=== PATIENT | female | born 1935 | race Caucasian/White ===

== ENCOUNTER 2016-11-22 10:59 | Observation (INO) | payer MEDICARE, MEDICAID ==
--- NOTE | 2016-11-16 22:29 | HP ---
CC: Dr. Jolie Varner; Dr. Digna Ac ADMISSION HISTORY AND PHYSICAL: DATE OF ADMISSION: 11/22/16 ATTENDING PHYSICIAN: Dr. Best Peters. CHIEF COMPLAINT: Left breast cancer. HISTORY OF PRESENT ILLNESS: This is an 81-year-old female with history of breast cancer (status pos t right mastectomy), who beginning about 3 to 4 months ago noted pain in the inferior portion of the left breast that was eventually accompanied by skin lesion. She was seen by her PCP, Dr. Ac, i n September and referred for mammogram and ultrasound imaging neither of which showed any significant signs concerning for malignancy. She was seen by Dr. Peters in our office on 10/23/16, at which priscilla e, a punch biopsy was performed showing invasive lobular breast cancer, which was felt to be differe nt histologically from her prior right breast cancer. She was also seen by Dr. Varner. The patien t preferred to proceed surgically with mastectomy. It was not felt that she was a candidate for adj uvant chemotherapy and therefore, there was no recommendation for a lymph node biopsy. She did under go PET CT scanning with some concern for a left supraclavicular mass on exam, which per her daughter has been present for at least the last year or two. This apparently did not show as being PET avid (see separate report). After discussion with Dr. Varner and Dr. Peters regarding the indications, risks, benefits, and alternatives, the patient elected to proceed as scheduled with left mastectomy . PAST MEDICAL HISTORY: Breast cancer, status post right mastectomy with sentinel lymph node biopsy ( 0 of 2 lymph nodes positive for malignancy). She was treated with postoperative tamoxifen therapy a nd has demonstrated no evidence of recurrence of the right breast cancer. She is also treated medic ally for depression, hypothyroidism, peptic ulcer disease, essential tremor, hallucinations, mild de mentia. She also has mild renal insufficiency by recent lab work and this has been mildly progressi ve over the last couple of years. PAST SURGICAL HISTORY: Includes right mastectomy with sentinel lymph node biopsy, repair right shou lder rotator cuff, ORIF of left hip fracture, appendectomy remotely, right oophorectomy apparently f or benign disease in her 20s, subsequent uterine suspension, bilateral cataract extraction and lens implant. No surgical or anesthesia complications reported. CURRENT MEDICATIONS: 1. Levothyroxine 88 mcg once daily. 2. Propranolol 10 mg 2 tablets b.i.d. 3. Aricept 10 mg q. day. 4. Sertraline 50 mg q. day. 5. Gabapentin 300 mg three tablets at h.s. 6. Omeprazole 40 mg q. day. 7. Centrum Silver multivitamin once daily. 8. Calcium with vitamin D 2 tablets b.i.d. DRUG ALLERGIES: PENICILLIN (rash) (the patient has received cefazolin in the past without any probl em). PRIMIDONE, BACLOFEN, and ROPINIROLE have all caused [employer] side effects. FAMILY HISTORY: Positive for postmenopausal breast cancer in her sister and possibly ovarian cancer in her paternal grandmother and probable uterine cancer in her mother, though undetermined. There is no family history of anesthesia problems, bleeding, or clotting disorder. SOCIAL HISTORY: The patient is and lives alone. Her daughter accompanies her today. She i s a former smoker of approximately 1 pack per day for 45 years having quit now about 5 years ago. S he denies use of alcohol or other drugs. REVIEW OF SYSTEMS: General: No recent constitutional symptoms or acute illnesses other than per th e HPI. Her weight has been stable and per her daughter actually up about 3 pounds in recent months. Cardiovascular: No chest pain, palpitations, history of hypertension, or heart murmur. She takes propranolol for tremor. Respiratory: Smoking history as noted. She denies chronic cough or shortn ess of breath. Her ambulation is limited by orthopedic and/or neurological problems. GI: No proble ms reported. No recent GERD symptoms. She does not recall her last colonoscopy but has had them in the past. : No problems reported. [employer]AC[employer] MEMBER: As above per HPI. No vaginal problems reported. [facility] [place] As above. No additions. The patient did sustain a fall back in the spring 2015 with resulting right wrist fracture, which was treated with closed reduction. Neurological: As above. She is followed by Dr. Sam. The patient has had some balance problems and falls though is not presently using any ambulation aids. PHYSICAL EXAMINATION GENERAL: Well-nourished, somewhat frail-appearing elderly female, in no acute distress. VITAL SIGNS: Height 5 feet 1 inch, weight 126 pounds by history. Other vital signs per nursing. HEENT: Pupils equal, round, and reactive. EOMs intact. No conjunctival pallor. Oropharynx, she thorne s full upper denture, but is otherwise edentulous. No intraoral lesions. NECK: No lymphadenopathy or thyromegaly. She does have what feels like a soft tissue mass consiste nt with lipoma in the left supraclavicular region near the base of the SCM muscle. It is nontender and the daughter states that it has been present for the last year or two and seems to wax or wane. As noted above, this did not seem to be PET avid on PET CT from yesterday. This based on only on m y review of the report and not the actual scan. Per Dr. Varner's notes, no palpable axillary lymp hadenopathy. LUNGS: Clear to auscultation. No rales or wheezes. HEART: Regular rate and rhythm. No murmur noted. BREASTS: As per Dr. Peters's exam status post right mastectomy. There is some fullness and chronic induration in the anterior inferior right chest wall. There seems to be chronic changes post right mastectomy. There is no evidence of recurrent breast cancer on the right. On the left, there is a n area measuring approximately 2 x 5 cm in the medial aspect of the left breast inferior mammary fol d from which the recent biopsy was taken. Per Dr. Peters's exam, there were no other palpable april s of concern within the left breast. ABDOMEN: Soft, nontender to palpation other than some mild tenderness in the left lower quadrant. The remainder of the abdomen is without tenderness, palpable masses, or organomegaly. GENITALIA AND RECTAL: Not done. BACK: No spinous process tenderness, though there is some tenderness over the left SI joint. No CV A tenderness. EXTREMITIES: Well-healed surgical scar over the left lateral hip. No peripheral edema. VASCULAR EXAM: Not performed. MUSCULOSKELETAL: Not specifically performed. NEUROLOGICAL: Grossly intact. SKIN: Warm and dry. No suspicious rashes or lesions other than that noted in the HPI and confirmed by Dr. Peters's exam in the inframammary fold of the left breast. IMPRESSION: Left breast cancer. PLAN: Left mastectomy. RIGO MARTINES [id number]/[facility] #: [id number]
[~2016-11-22 10:59] MED LIST: Buffered Lidocaine 1% SYR 3ML* 3 ML/SYR SYRINGE INTRADERM ONE; Dexamethasone TAB* 4 MG PO ONE; Famotidine IV* 10 MG/ML 2 ML (20 mg) IV ONE
[2016-11-22] MEDS ORDERED: HYDROcodone/ACETAMIN 5-325 MG* 1 TAB PO PRN (12:18)
[2016-11-22] MEDS ORDERED: fentaNYL* 50 MCG/ML 2 ML VIAL (100 MCG VIAL) ONE ×2 (12:41→14:16)
[2016-11-22] MEDS ORDERED: Propofol* 10 MG/ML 20 ML BTL IV PUSH ONE (12:41)
[2016-11-22] MEDS ORDERED: Lidocaine 2% PF * 5 ML VIAL ONE (12:41)
[2016-11-22] MEDS ORDERED: EPHEDrine (Pressors)* 50 MG/ML VIAL ONE (12:57)
[2016-11-22] MEDS ORDERED: Ondansetron INJ* 2 MG/ML VIAL ONE (13:22)
[2016-11-22] MEDS ORDERED: oxyCODONE/Acetamin 5/325 MG* TAB ONE ×2 (14:16→16:07)
[2016-11-22] MEDS: fentaNYL* 50 MCG/ML 2 ML VIAL (100 MCG VIAL) IV PRN ×2 (14:19→14:25)
[2016-11-22] MEDS: oxyCODONE/Acetamin 5/325 MG* TAB PO PRN ×2 (14:20→16:08)
[2016-11-22] MEDS ORDERED: oxyCODONE/Acetamin 5/325 MG* TAB PO PRN (16:53)
[2016-11-22] MEDS ORDERED: Acetaminophen TAB* 325 MG PO PRN (16:53)
[2016-11-22] MEDS ORDERED: Ondansetron INJ* 2 MG/ML VIAL IV PRN (16:53)
[2016-11-22] MEDS ORDERED: Morphine INJ* 2 MG/ML 1 ML CARPUJECT IV PRN ×2 (17:51→17:52)
[2016-11-22] MEDS: Propranolol TAB* 20 MG PO SCH (21:24)
[2016-11-22] MEDS: Gabapentin CAP(*) 300 MG PO SCH (21:24)
[2016-11-22] MEDS: Heparin VIAL(*) 5000 UNITS/ML VIAL (FIVE THOUSAND) SUBCUT SCH (21:24)
[2016-11-22] MEDS: SALON PAS TOPICAL SCH (21:31)
--- NOTE | 2016-11-23 02:25 | OP ---
DATE OF OPERATION: 11/22/16 - ROOM #335 DATE OF : 33 SURGEON: Best Peters MD INSPECTOR RAG SORTING: Dorcas Ohara NP ANESTHESIOLOGIST: Dr. Gonzalez. ANESTHESIA: General anesthetic. PRE-OP DIAGNOSIS: Left breast cancer. POST-OP DIAGNOSIS: Left breast cancer. OPERATIVE PROCEDURE: Left mastectomy. DESCRIPTION OF PROCEDURE: The patient was supine on the operative room table. After adequate general anesthetic, compression stockings, Jonathan Hugger warmer, and intravenous antibiotics, the left chest was prepped with antiseptic, draped in a sterile fashion. The incision was marked out trying to encompass the entire area of the tumor erosion into the skin as well as the nipple-areolar complex. The area of the skin erosion as well as the palpable under-lying tumor encompassed approximately 6 x 4 cm in the medial aspect of the breast at the inframammary fold. At any case, an appropriate elliptical incision was created and mastectomy was carried out in a standard fashion. At the region of the tumor, I had to take out some of the pectoralis muscle with the mastectomy specimen because of the depth of the tumor. Flaps were undermined to allow a little more mobility. The area was irrigated with warm saline solution, free fluid was suctioned. Hemostasis was obtained using cautery or suture where appropriate, and closure was accomplished using 3-0 Vicryl and surgical clips for the skin. A AMY drain had been placed through a lateral stab wound, sutured at the skin with 3-0 Prolene and attached to the bulb suction. Gauze dressing and an Rober wrap were placed. She tolerated the procedure well, was brought to recovery in good condition. No complications. Estimated blood loss less than 100 mL. Sponge and instrument counts correct. Specimen was left mastectomy, suture marking lateral. CC: Dr. Best Peters; Dr. Digna Ac; Dr. Jolie Varner * [id number]/[facility] #: [id number] [facility]
[2016-11-23] MEDS: Levothyroxine TAB* 88 MCG TAB PO SCH (05:28)
[2016-11-23] MEDS: Propranolol TAB* 20 MG PO SCH ×2 (09:11→21:15)
[2016-11-23] MEDS: Donepezil TAB* 5 MG PO SCH (09:11)
[2016-11-23] MEDS: Sertraline* 50 MG TAB PO SCH (09:11)
[2016-11-23] MEDS: Omeprazole CAP* 20 MG PO SCH (09:11)
[2016-11-23] MEDS: Heparin VIAL(*) 5000 UNITS/ML VIAL (FIVE THOUSAND) SUBCUT SCH ×2 (09:12→21:16)
[2016-11-23] MEDS: SALON PAS TOPICAL SCH ×2 (09:12→20:09)
--- NOTE | 2016-11-23 16:54 | PN ---
Progress Note - Progress Note Note: Surgery Progress: S: patient seen this a.m. by Dr. Peters, then later w/ her daughters by myself around 1100. I reviewed her PT komal and discussed her case w/ Fabiola Live. A/P: POD #1 s/p Left Mastectomy, felt to be unsafe for independent ambulation at home (she has already had a few falls), now with increased disability 2/2 her surgery. Also, as she lives alone, she would likely be incapable of managing her AMY drain on her own. An application has been put in to half-way , but we will not know until at least tomorrow. Will therefore change her status to full inpatient as she will stay tonight, thus meeting the two midnight criteria.
[2016-11-23] MEDS: Gabapentin CAP(*) 300 MG PO SCH (21:15)
[2016-11-24] MEDS: Levothyroxine TAB* 88 MCG TAB PO SCH (05:29)
[2016-11-24] MEDS: SALON PAS TOPICAL SCH (07:30)
[2016-11-24 07:39] VITALS: BP 83/39
[2016-11-24] MEDS: Omeprazole CAP* 20 MG PO SCH (07:50)
[2016-11-24] MEDS: Propranolol TAB* 20 MG PO SCH (07:50)
[2016-11-24] MEDS: Sertraline* 50 MG TAB PO SCH (07:50)
[2016-11-24] MEDS: Donepezil TAB* 5 MG PO SCH (07:50)
[2016-11-24] MEDS: Heparin VIAL(*) 5000 UNITS/ML VIAL (FIVE THOUSAND) SUBCUT SCH (07:51)
--- NOTE | 2016-11-24 15:24 | DS ---
DISCHARGE SUMMARY: DATE OF ADMISSION: 11/22/16 DATE OF ANTICIPATED DISCHARGE: 11/24/16 ATTENDING SURGEON: Dr. Best Peters. (dictated by RIGO Renee) HOSPITAL COURSE: Please refer to admission history and physical for admission details. The patient was taken to the operating room on 11/22/16 at which time she underwent left simple mastectomy with Dr. Peters. At the time of this dictation, pathology was still pending. The patient has had an otherwise uneventful postoperative course. She did have some periods of low oxygen saturation on room air but was doing well as of the time of this dictation on room air. Her pain has been well controlled. She was felt to be unsteady with her gait sufficiently that a physical therapy consult was requested. This indicated the patient was at high risk for falls without proper assistance and supervision. The patient had been examined the morning of 11/23/[address] Peters. Nilesh Avina drainage with serosanguineous with a total of approximately 75 cc from the first postoperative night. IMPRESSION: Status post left mastectomy. PLAN: Because of patient's high risk for falls and that she lives at home independently, it was felt best to seek short-term [facility] facility for rehab. This is still pending with the possibility of a bed available on . This will also assist with her Nilesh-Avina drain management, which would need to be emptied at least twice daily and possibly 3 to 4 times. DISCHARGE MEDICATIONS: Will include her usual home medications: 1. Centrum Silver once daily. 2. Calcium with vitamin D two capsules b.i.d. 3. Levothyroxine 88 mcg once daily. 4. Aricept 10 mg once daily. 5. Zoloft 50 mg once daily. 6. Gabapentin 900 mg at h.s. 7. Propranolol 20 mg b.i.d. 8. Omeprazole 40 mg q.a.m. 9. Acetaminophen 1000 mg b.i.d. She was also prescribed Percocet 5/325 one half tablet q. 4 hours p.r.n. pain. RIGO MARTINES CC: Dr. Digna Ac; Dr. Jolie Varner * [id number]/[facility] #: [id number] [place]
== END 2016-11-24 11:50 | disposition home or self-care (01) ==
LOC: OR 10:59 → SSU 16:55
PROVIDERS: ADMIT Surgery; ATTEND Surgery
PROC: 0HTU0ZZ Resection of Left Breast, Open Approach (ICD-10-PCS; principal; 2016-11-22 12:45)
DX: C50.512 Malignant neoplasm of lower-outer quadrant of left female breast (principal); E03.9 Hypothyroidism, unspecified; F32.9 Major depressive disorder, single episode, unspecified; K27.9 Peptic ulcer, site unspecified, unspecified as acute or chronic, without hemorrhage or perforation; G25.0 Essential tremor; F03.90 Unspecified dementia, unspecified severity, without behavioral disturbance, psychotic disturbance, mood disturbance, and anxiety; Z79.899 Other long term (current) drug therapy; Z87.891 Personal history of nicotine dependence
CPT/HCPCS: 88307; A9270-GY; G0378; G8978-GP-CK; G8979-GP-CI; G8980-GP-CK; J1644; J2405; J2704; J3010

== ENCOUNTER → 2017-05-10 21:39 | Emergency (ER) | payer MEDICARE ==
[2017-05-11 00:06] VITALS: BP 131/62
--- NOTE | 2017-05-11 07:46 | RAD ---
HISTORY: Fall, left hip pain COMPARISONS: March 05, 2015 VIEWS: 3, Frontal view of the pelvis with frontal and frog-leg views of the left hip FINDINGS: BONE DENSITY: Normal. BONES: There is no displaced fracture. JOINTS: There is advanced osteoarthritis of the left hip. 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 ALIGNMENT: There is no dislocation. SOFT TISSUES: Unremarkable. OTHER FINDINGS: Degenerative changes are noted of the spine IMPRESSION: OSTEOARTHRITIS. NO RADIOGRAPHIC EVIDENCE FOR HIP FRACTURE. X-RAYS MAY BE NEGATIVE WITH NONDISPLACED HIP FRACTURE, IF THERE IS PERSISTENT CLINICAL CONCERN, RECOMMEND CONSIDERATION OF MRI. IN THE SETTING OF CONTRAINDICATION TO MRI OR LIMITATION IN EMERGENT ACCESS TO MRI, CT WOULD BE SUGGESTED.
--- NOTE | 2017-05-11 07:47 | RAD ---
HISTORY: Fall COMPARISONS: July 15, 2015 VIEWS: 2: Frontal and lateral views of the chest. FINDINGS: CARDIOMEDIASTINAL SILHOUETTE: The cardiomediastinal silhouette is normal. TUNDE: The tunde are normal. PLEURA: The costophrenic angles are sharp. No pleural abnormalities are noted. LUNG PARENCHYMA: There is a stable calcified granuloma of the right upper lung. ABDOMEN: The upper abdomen is clear. There is no subphrenic gas. BONES AND SOFT TISSUES: There is postsurgical change to the right shoulder. OTHER: None. IMPRESSION: NO ACTIVE CARDIOPULMONARY DISEASE.
== END | disposition home or self-care (01) ==
LOC: ED 21:39
DX: M25.552 Pain in left hip (principal)
CPT/HCPCS: 71020; 99283

== ENCOUNTER 2017-12-01 17:31 | Emergency (ER) | payer MEDICARE ==
--- NOTE | 2017-12-01 19:31 | RAD ---
INDICATION: Fall COMPARISON: None. TECHNIQUE: Contiguous axial sections of the brain were obtained from the skull base to the vertex without contrast. FINDINGS: The ventricles, cisterns and sulci exhibit mild symmetrical involutional changes appropriate for the patient's age. There is mild to moderate periventricular and subcortical white matter hypoattenuation most consistent with chronic microvascular disease. Otherwise the abraham-white matter differentiation is adequately maintained and there is no sulcal effacement. No significant focal abnormality or mass effect is present. There is no evidence for intracranial hemorrhage. At the right frontal bone there is a 6 mm hypoattenuating focus overlying the medullary cavity of the bone. This does not communicate with the inner table of the skull characteristic of a venous vargas. This does not involve the cortex and there is no periosteal reaction. The visualized portion of the paranasal sinuses appear clear. The mastoid air cells are well aerated bilaterally. IMPRESSION: 1. No CT evidence of acute traumatic intracranial abnormality. 2. At the right frontal bone there is a 6 mm medullary hypoattenuating focus with nonaggressive CT imaging features that is nonspecific and of unknown chronicity
[2017-12-01 19:40] LABS: ABS Basophils 0 10^3/ul (0-0.2); ABS Eosinophils 0 10^3/ul (0-0.6); ABS Lymphocytes 1.5 10^3/ul (1.0-4.8); ABS Monocytes 0.4 10^3/ul (0-0.8); ABS Neutrophils 5.4 10^3/ul (1.5-7.7); ABS Nucleated RBC 0 10^3/ul; Eosinophil % 0.6 % (0-6); Hematocrit 35 % (35-47); Mean Corpuscular HGB Conc 34 g/dl (31-36); Mean Corpuscular Hemoglobin 32 pg (27-31); Mean Corpuscular Volume 92 fL (80-97); Mean Platelet Volume 8 um3 (7.4-10.4); Nucleated Red Blood Cells % 0.1; Platelet Count 146 10^3/ul (150-450); Red Cell Distribution Width 15 % (10.5-15); White Blood Count 7.3 10^3/ul (3.5-10.8)
[2017-12-01 19:41] LABS: Urine Appearance Clear; Urine Blood Negative (Negative); Urine Color Yellow; Urine Ketones Trace (Negative); Urine Protein Negative (Negative); Urine Specific Gravity 1.013 (1.010-1.030); Urine Urobilinogen Negative (Negative)
[2017-12-01 19:54] LABS: EGFR Non-African American 41.7 (>60)
--- NOTE | 2017-12-01 20:14 | RAD ---
INDICATION: Low back pain after a fall COMPARISON: PET/CT dated November 15, 2016 and chest x-ray dated February 07, 2017 TECHNIQUE: Contiguous axial sections were obtained beginning lower thoracic vertebra and continuing through the sacrum. Images were reconstructed in the sagittal and coronal planes. FINDINGS: There is depression of the superior endplate of the T12 vertebral body with slight cortical discontinuity along the anterior margin of the vertebral body. There is dextroconvex scoliosis of the lumbar spine measuring 30 degrees with the apex at the L1/L2 intervertebral disc. On the sagittal view there is straightening of the normal cervical lordosis. Multilevel degenerative changes include loss of intervertebral disc height and multilevel vacuum disc phenomenon. There is exuberant marginal osteophyte formation and endplate sclerosis. These changes are most severe at L2/L3, L3/L4 and L5/S1. There are varying degrees of central canal or neural foraminal stenoses essentially involving all levels of the lumbar spine. There is advanced calcified atherosclerosis of the infrarenal abdominal aorta extending into the bilateral iliac arteries. A large renal cyst is noted at the left kidney. The visualized portions of the liver homogenously hypodense relative to the spleen consistent with hepatic steatosis. IMPRESSION: 1. There is a compression deformity of the T12 vertebral body that was not seen on the PET/CT dated November 15, 2016 and likely not seen on the May 10, 2017 chest x-ray. Please correlate to the focality of the patient's new pain since a reported fall. Superior characterization with determination of acuity can be made with MRI of the spine. 2. Advanced multilevel degenerative change of the lower thoracic and lumbar spine.
--- NOTE | 2017-12-01 20:20 | RAD ---
INDICATION: Left hip pain after a fall COMPARISON: Most recent hip radiograph is dated August 05, 2017 TECHNIQUE: 3 views of the left hip were obtained. FINDINGS: Advanced degenerative changes of the left hip include sclerotic remodeling and flattening of the left femoral head with exuberant marginal osteophyte formation and joint space narrowing. The appearance is similar to the most recent radiograph. There is no definite new cortical discontinuity to indicate an acute fracture. To a lesser extent more mild degenerative changes are noted at the right hip. There is no definite fracture of the pubic rami.. IMPRESSION: Advanced degenerative changes of the left hip without definite radiographically apparent acute fracture. If the patient's symptoms persist follow-up imaging is recommended.
--- NOTE | 2017-12-01 20:22 | RAD ---
INDICATION: Left hip pain COMPARISON: Chest x-ray dated May 10, 2017 TECHNIQUE: Single AP view of the chest was obtained. FINDINGS: There is mild cardiomegaly that appears worse when compared to the previous chest x-ray. The heart and mediastinum otherwise exhibit normal contours. The degree of diffuse interstitial parenchymal density is unchanged in the previous chest x-ray. There is slight obscuration of the left hemidiaphragm left costophrenic angle blunting. Visualized bones are normal for the patient's age. IMPRESSION: SINCE THE MAY 10, 2017 CHEST X-RAY THERE APPEARS TO BE WORSENING DEGREE OF MILD CARDIOMEGALY AND APPEARANCE CONSISTENT WITH MILD VASCULAR CONGESTION.
--- NOTE | 2017-12-01 21:41 | RAD ---
CLINICAL HISTORY: Left hip pain after a fall. Relevant surgical history includes medullary screw fixation of fractured left femoral neck 2009 with subsequent screw removal. COMPARISON: Same day radiograph of the left hip TECHNIQUE: Axial CT images of the pelvis were obtained without intravenous contrast. Reformats in the sagittal and coronal planes were created and reviewed. FINDINGS: The visualized portions of the solid abdominal organs are grossly normal in appearance. The visualized segments of small and large bowel are not distended. Innumerable distal colonic diverticula are seen without focal inflammatory change. There is no gross retroperitoneal or mesenteric lymphadenopathy in the visualized portions of the lower abdomen and pelvis. There is coarse calcification in the infrarenal abdominal aorta extending into the bilateral iliac arteries. As was seen on the same day radiograph there there are severe degenerative changes of the left hip include joint space narrowing and, sclerotic change of the articulating services, subchondral lucencies and marginal osteophyte formation. There are 3 lucent lines overlying the left femoral head and neck with a morphology compatible with prior screw locations. There is no definite acute fracture or dislocation involving the proximal left femur or the pelvis. Mild degenerative changes are also noted at the right hip but to a much lesser extent. IMPRESSION: Degenerative and postsurgical changes of the left hip as described above without acute fracture or dislocation.
[2017-12-01] MEDS ORDERED: LORazepam INJ* 2 MG/ML 1 ML VIAL IV ONE (22:06)
[2017-12-01] MEDS ORDERED: LORazepam TAB(*) 0.5 MG ONE (22:26)
[2017-12-01] MEDS ORDERED: LORazepam TAB(*) 0.5 MG PO ONE (22:37)
[2017-12-01 22:58] VITALS: BP 133/52
--- NOTE | 2017-12-02 11:15 | ED ---
Park Mckinney Thomas, scribed for Yohan Chan MD on 12/01/17 at 1951 . Complex/Multi-Sys Presentation - HPI Summary HPI Summary: The patient is an 82 year old female who was brought in to the emergency department because she fell yesterday. She is not sure how she fell, what happened, or what room she was in when she fell. She complains of mid and lower back pain. At baseline the patient gets around in a wheelchair because she is unsteady on her feet. - History Of Current Complaint Chief Complaint: EDGeneral Time Seen by Provider: 12/01/17 18:36 Hx Obtained From: Patient Onset/Duration: Lasting Days, Still Present Timing: Constant Severity Initially: Moderate Location: Pain At: - mid, lower back Alleviating Factor(s): None Associated Signs And Symptoms: Positive: Other - Fall, back pain - Allergies/Home Medications Allergies/Adverse Reactions: Allergies Allergy/AdvReac Type Severity Reaction Status Date / Time baclofen Allergy Shakes Verified 12/01/17 18:29 Penicillins Allergy Rash Verified 12/01/17 18:29 ropinirole Allergy Unknown Verified 12/01/17 18:29 Reaction Details wasp venom Allergy Difficulty Uncoded 12/01/17 18:29 Breathing/Wheezing narcotic pain meds AdvReac Intermediate Vomiting Uncoded 11/15/16 09:31 PMH/Surg Hx/FS Hx/Imm Hx Endocrine/Hematology History: Reports: Hx Thyroid Disease Denies: Hx Diabetes Cardiovascular History: Denies: Hx Hypertension, Hx Pacemaker/ICD Respiratory History: Reports: Other Respiratory Problems/Disorders - 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) Denies: Hx Asthma GI History: Reports: Hx Ulcer, Other GI Disorders - diarrhea History: Reports: Other Problems/Disorders - incontinance Denies: Hx Renal Disease Musculoskeletal History: Reports: Hx Arthritis, Hx Bursitis - in right hip - had a cortisone injection 3 years ago, Other Musculoskeletal History - lumbar stenosis, cervical stenosis Sensory History: Reports: Hx Contacts or Glasses - glasses Denies: Hx Hearing Aid Opthamlomology History: Reports: Hx Contacts or Glasses - glasses Neurological History: Reports: Hx Headaches, Hx Migraine, Hx Nerve Disease - tremors in legs and hands from back Comment Only: Other Neuro Impairments/Disorders - alzimers Psychiatric History: Reports: Hx Depression - ZOLOFT Denies: Hx Panic Disorder - Cancer History Cancer Type, Location and Year: BREAST Hx Chemotherapy: No Hx Radiation Therapy: No - Surgical History Surgery Procedure, Year, and Place: LT HIP ORIF WITH SCREW THEN SCREW REMOVAL - 2009;. 2009 right shoulder RTC REPAIR, right masectomy;. APPENDECTOMY AND RIGHT OVARY REMOVAL;. RECONSTRUCTION TO ABDOMEN AFTER APPENDECTOMY;. BILATERAL CATARACTS Hx Anesthesia Reactions: Yes - felt a little nausea after anesthesia Infectious Disease History: No Infectious Disease History: Reports: Hx Shingles Denies: Traveled Outside the [place] in Last 30 Days - Family History Known Family History: Positive: Other - Per EMR, patient denies relevant FHx - Social History Alcohol Use: None Substance Use Type: Reports: None Smoking Status (MU): Former Smoker Review of Systems Negative: Epistaxis Positive: Other - Mid, lower back pain Neurological: Other - Fall All Other Systems Reviewed And Are Negative: Yes Physical Exam - Summary Physical Exam Summary: Appearance: The patient is well-nourished in no acute distress and in no acute pain. Skin: The skin is warm and dry and skin color reflects adequate perfusion. HEENT: The head is normocephalic and atraumatic. The pupils are equal and reactive. The conjunctivae are clear and without drainage. Nares are patent and without drainage. Mouth reveals moist mucous membranes and the throat is without erythema and exudate. The external ears are intact. The ear canals are patent and without drainage. The tympanic membranes are intact. Neck: the neck is supple with full range of motion and non-tender. There are no carotid bruits. There is no neck vein distension. Respiratory: Chest is non-tender. Lungs are clear to auscultation and breath sounds are symmetrical and equal. Cardiovascular: Heart is regular rate and rhythm. There is no murmur or rub auscultated. There is no peripheral edema and pulses are symmetrical and equal. Abdomen: The abdomen is soft and non-tender. There are normal bowel sounds heard in all four quadrants and there is no organomegaly palpated. Musculoskeletal: She is tender to her left hip and paralumbar area. She is tender to any range of motion of the left hip. The left leg is shorter than the right. There is good capillary refill. There is no peripheral edema or calf tenderness elicited. Neurological: Patient is alert and oriented to person, place and time. The patient has symmetrical motor strength in all four extremities.~Cranial nerves are grossly intact. Deep tendon reflexes are symmetrical and equal in all four extremities. Psychiatric: The patient has an appropriate affect and does not exhibit any anxiety or depression. Triage Information Reviewed: Yes Vital Signs On Initial Exam: Initial Vitals Temp Pulse Resp BP Pulse Ox 99.6 F 73 14 147/40 89 12/01/17 17:35 12/01/17 17:35 12/01/17 17:35 12/01/17 17:35 12/01/17 17:35 Vital Signs Reviewed: Yes Diagnostics - Vital Signs Vital Signs Temp Pulse Resp BP Pulse Ox 12/01/17 19:00 68 14 121/89 98 12/01/17 18:30 69 12 114/52 95 12/01/17 18:00 69 16 117/67 96 12/01/17 17:50 97 12/01/17 17:47 72 17 147/40 92 12/01/17 17:41 74 89 12/01/17 17:35 99.6 F 73 14 147/40 89 - Laboratory Lab Results: Lab Results 12/01/17 12/01/17 Range/Units 17:45 19:25 WBC 7.3 (3.5-10.8) 10^3/ul RBC 3.80 L (4.0-5.4) 10^6/ul Hgb 12.0 (12.0-16.0) g/dl Hct 35 (35-47) % MCV 92 (80-97) fL MCH 32 H (27-31) pg MCHC 34 (31-36) g/dl RDW 15 (10.5-15) % Plt Count 146 L (150-450) 10^3/ul MPV 8 (7.4-10.4) um3 Neut % (Auto) 73.0 (38-83) % Lymph % (Auto) 21.0 L (25-47) % [place] % (Auto) 4.8 (0-7) % Eos % (Auto) 0.6 (0-6) % Baso % (Auto) 0.6 (0-2) % Absolute Neuts (auto) 5.4 (1.5-7.7) 10^3/ul Absolute Lymphs (auto) 1.5 (1.0-4.8) 10^3/ul Absolute Monos (auto) 0.4 (0-0.8) 10^3/ul Absolute Eos (auto) 0 (0-0.6) 10^3/ul Absolute Basos (auto) 0 (0-0.2) 10^3/ul Absolute Nucleated RBC 0 10^3/ul Nucleated RBC % 0.1 Urine Color Yellow Urine Appearance Clear Urine pH 7.0 (5-9) Ur Specific Pitcher 1.013 (1.010-1.030) Urine Protein Negative (Negative) Urine Ketones Trace A (Negative) Urine Blood Negative (Negative) Urine Nitrate Negative (Negative) Urine Bilirubin Negative (Negative) Urine Urobilinogen Negative (Negative) Ur Leukocyte Esterase Negative (Negative) Urine Glucose Negative (Negative) Result Diagrams: 12/01/17 19:25 12/01/17 19:25 Lab Statement: Any lab studies that have been ordered have been reviewed, and results considered in the medical decision making process. - Radiology CXR Xray Interpretation: No Acute Changes - SINCE THE MAY 10, 2017 CHEST X-RAY THERE APPEARS TO BE WORSENING DEGREE OF MILD CARDIOMEGALY AND APPEARANCE CONSISTENT WITH MILD VASCULAR CONGESTION. Dr. Chan has reviewed this report. Radiology Interpretation Completed By: Radiologist Hip/Pelvis XR Xray Interpretation: No Acute Changes Radiology Interpretation Completed By: Radiologist - CT CT Brain CT Interpretation: No Acute Changes - 1. No CT evidence of acute traumatic intracranial abnormality. 2. At the right frontal bone there is a 6 mm medullary hypoattenuating focus with nonaggressive CT imaging features that is nonspecific and of unknown chronicity. Dr. Chan has reviewed this report. CT Interpretation Completed By: Radiologist CT L-Spine CT Interpretation: Positive (See Comments) - 1. There is a compression deformity of the T12 vertebral body that was not seen on the PET/CT dated November 15, 2016 and likely not seen on the May 10, 2017 chest x-ray. Please correlate to the focality of the patient's new pain since a reported fall. Superior characterization with determination of acuity can be made with MRI of the spine. 2. Advanced multilevel degenerative change of the lower thoracic and lumbar spine. Dr. Chan has reviewed this report. CT Interpretation Completed By: Radiologist CT Pelvis CT Interpretation: No Acute Changes - Degenerative and postsurgical changes of the left hip as described above without acute fracture or dislocation. Dr. Chan has reviewed this report. CT Interpretation Completed By: Radiologist - EKG 18:11 Cardiac Rate: NL EKG Rhythm: Sinus Rhythm - at 68 BPM Re-Evaluation - Re-Evaluation First Eval Re-Evaluation Time: 22:03 Comment: Discussed results. Patient will be discharged. Complex Multi-Symp Course/Dx Course Of Treatment: Ms. Elizabeth presented after falling yesterday. She suggests that she may have tried to walk to the kitchen without using her wheelchair and that she is very unsteady on her feet. She C/O low back and left hip pain and had an obvious deformity of the left hip. The deformity turned out to be chronic on CT and the pain was secondary to a presumably new compression fracture at T-12. The rest of her W/U was negative. She may have been syncopal but was stable on the monitor while she was in the ED 24 hours later. - Diagnoses Provider Diagnoses: Compression fracture of body of thoracic vertebra Discharge - Discharge Plan Condition: Stable Disposition: HOME Prescriptions: LORazepam TAB(*) [Ativan TAB(*)] 0.5 mg PO Q6H PRN #20 tab MDD 4 PRN Reason: Pain Patient Education Materials: Ibuprofen (By mouth), Vertebral Compression Fracture (ED) Referrals: Digna Ac MD [Primary Care Provider] - 3 Days Additional Instructions: Follow up with Dr. Ac in 3-4 days. I recommend ibuprofen for the pain. Return to the emergency department for any new or worsening symptoms. The documentation as recorded by the Park childs Thomas accurately reflects the service I personally performed and the decisions made by me, Yohan Chan MD.
== END 2017-12-01 22:24 | disposition home or self-care (01) ==
LOC: ED 17:31
DX: S22.089A Unspecified fracture of T11-T12 vertebra, initial encounter for closed fracture (principal); W19.XXXA Unspecified fall, initial encounter; Y92.9 Unspecified place or not applicable; Z87.891 Personal history of nicotine dependence; Z88.3 Allergy status to other anti-infective agents; Z88.5 Allergy status to narcotic agent; Z88.0 Allergy status to penicillin
CPT/HCPCS: 36415; 70450; 71045; 72131; 72192; 80053; 81003; 82550; 84484; 85025; 86140; 93005; 99283; A9270-GY

== ENCOUNTER 2018-02-02 09:13 | Emergency (ER) | payer MEDICARE, MEDICAID ==
--- NOTE | 2018-02-02 10:18 | RAD ---
HISTORY: Fall. No other history is provided COMPARISONS: December 01, 2017 TECHNIQUE: Multiple contiguous axial CT scans were obtained of the head without intravenous contrast. FINDINGS: HEMORRHAGE/INFARCT: There is no hemorrhage or acute infarct. MASSES/SHIFT: There is no mass or shift. EXTRA-AXIAL SPACES: There are no extra-axial fluid collections. SULCI AND VENTRICLES: The sulci and ventricles are normal in size and position for the patient's stated age. CEREBRUM: There is hypoattenuation of the periventricular and subcortical white matter. BRAINSTEM: There are no focal parenchymal abnormalities. CEREBELLUM: There are no focal parenchymal abnormalities. VESSELS: The vessels are grossly normal. PARANASAL SINUSES: The paranasal sinuses are clear. ORBITS: The orbits are unremarkable. BONES AND SOFT TISSUE: No bone or soft tissue abnormalities are noted. OTHER: None IMPRESSION: NO ACUTE INTRACRANIAL PATHOLOGY.
--- NOTE | 2018-02-02 10:21 | RAD ---
HISTORY: Fall. No other history is provided. COMPARISONS: None relevant TECHNIQUE: Multiple contiguous axial CT scans were obtained of the cervical spine without intravenous contrast, with coronal and sagittal multiplanar reformations. FINDINGS: BRAIN: The visualized brain is unremarkable CENTRAL CANAL: Evaluation of the central canal is limited on CT technique; however, there is no obvious canalicular mass or epidural hemorrhage. ALIGNMENT: There is straightening with mild reversal of the normal cervical lordosis. There is grade 1 anterolisthesis of C4 on C5. VERTEBRAL BODIES: There is diffuse osteopenia. There is multilevel anterolateral marginal osteophyte formation. There is no displaced fracture. JOINTS: There is uncovertebral and facet osteoarthritis. There is osteoarthritis of the atlantoaxial articulation. MUSCULATURE: Unremarkable INTERVERTEBRAL DISCS: There is diffuse loss of intervertebral disc height. AXIAL IMAGES: C2-C3: There is bilateral facet hypertrophy. There is no significant osseous neural foraminal narrowing or central canal stenosis. C3-C4: There is bilateral facet hypertrophy. There is moderate bilateral neural foraminal narrowing. There is no osseous central canal stenosis. There is bilateral uncovertebral and facet hypertrophy. There is severe left and moderate right neural foraminal narrowing. There is mild narrowing of the central canal. C4-C5: There is bilateral uncovertebral facet hypertrophy. There is moderate bilateral neural foraminal narrowing. There is no osseous central canal stenosis. C5-C6: There is bilateral uncovertebral facet hypertrophy. There is moderate bilateral neural foraminal narrowing. There is no osseous central canal stenosis. C6-C7: There is bilateral uncovertebral and facet hypertrophy. There is mild bilateral neural foraminal narrowing. There is no osseous central canal stenosis. C7-T1: There is bilateral facet hypertrophy. There is mild bilateral neural foraminal narrowing. There is no significant central canal stenosis. SOFT TISSUES: The visualized soft tissues of the neck are unremarkable. The prevertebral fat stripe is preserved. OTHER: None. IMPRESSION: 1. OSTEOPENIA. 2. DEGENERATIVE DISC DISEASE AND OSTEOARTHRITIS. 3. NO ACUTE OSSEOUS INJURY TO THE CERVICAL SPINE
--- NOTE | 2018-02-02 10:25 | RAD ---
HISTORY: Fall. No other history is provided COMPARISONS: December 01, 2012 TECHNIQUE: Multiple contiguous axial CT scans were obtained of the lumbar spine without intravenous contrast, with coronal and sagittal multiplanar reformations. FINDINGS: SPINAL CANAL: Evaluation of the central canal is limited on CT technique; however, there is no obvious canalicular mass or epidural hemorrhage. ALIGNMENT: There is a dextroscoliotic curvature of the spine. VERTEBRAL BODIES: There is diffuse osteopenia. There is no displaced fracture. There is multilevel anterolateral marginal osteophyte formation with sclerotic reactive end plate changes. There is sclerosis with a compression deformity of T12 consistent with healing response in the setting of subacute to chronic compression fracture. There is no osseous retropulsion. JOINTS: There is osteoarthritis of the facet joints. MUSCULATURE: Unremarkable INTERVERTEBRAL DISCS: There is diffuse loss of intervertebral disc height throughout the spine. AXIAL IMAGES: There is multilevel neural foraminal narrowing. There is severe narrowing of the central canal at L2-L3 and L3-L4 with moderate narrowing at L4-L5 SOFT TISSUES: The left renal cyst is noted. There is atherosclerosis of the aorta. There is fatty infiltration of the liver. Multiple calcified granulomas of the spleen are noted. Gallstones are noted. OTHER: None IMPRESSION: 1. OSTEOPENIA. 2. SCOLIOSIS. 3. DEGENERATIVE DISC DISEASE AND OSTEOARTHRITIS. 4. THERE IS NARROWING OF THE CENTRAL CANAL AT L2-L3 L3-L4 AND TO LESSER EXTENT AT L4-L5. 5. THERE IS A HEALING COMPRESSION FRACTURE OF T12 NOTED ON THE PREVIOUS CT EXAMINATION. 6. ATHEROSCLEROSIS. 7. FATTY INFILTRATION OF THE LIVER. 8. CHOLELITHIASIS. 9. NO NEW ACUTE OSSEOUS INJURY TO THE CERVICAL SPINE
--- NOTE | 2018-02-02 10:28 | RAD ---
HISTORY: Fall, no other history is provided. COMPARISONS: CT dated December 01, 2017 TECHNIQUE: Multiple contiguous axial CT scans were obtained of the thoracic spine without intravenous contrast, with coronal and sagittal multiplanar reformations. FINDINGS: SPINAL CANAL: Evaluation of the central canal is limited on CT technique; however, there is no obvious canalicular mass or epidural hemorrhage. ALIGNMENT: There is a mild scoliotic curvature of the spine. VERTEBRAL BODIES: There is diffuse osteopenia. Again noted is a compression deformity of T12. There has been interval sclerosis consistent with healing response. There is multilevel anterolateral marginal osteophyte formation. JOINTS: There is osteoarthritis of the costovertebral articulations. MUSCULATURE: Unremarkable INTERVERTEBRAL DISCS: There is diffuse loss of intervertebral disc height throughout the spine. AXIAL IMAGES: There is no osseous central canal stenosis or neuroforaminal narrowing. SOFT TISSUES: Renal cyst is noted. There is fatty infiltration of liver. There are calcified granulomas of the spleen. There are calcified hilar and mediastinal lymph nodes. There is calcified granuloma of the superior segment of the right lower lobe. OTHER: None IMPRESSION: 1. OSTEOPENIA. 2. DEGENERATIVE DISC DISEASE AND OSTEOARTHRITIS. 3. HEALING COMPRESSION FRACTURE OF T12. 4. NO NEW ACUTE OSSEOUS INJURY TO THE CERVICAL SPINE. 5. EVIDENCE OF EXPOSURE TO GRANULOMATOUS DISEASE..
[2018-02-02] MEDS ORDERED: Acetaminophen TAB* 325 MG PO ONE (10:58)
--- NOTE | 2018-02-02 10:59 | ED ---
Adult Trauma - HPI Summary HPI Summary: Patient is an 82-year-old female presented to the ED from [facility] after a fall sustained around 3 AM this morning. The fall was mechanical per patient. She recalls the fall. Denies any loss of consciousness. She was able to ambulate after the fall. She stated when she returned to bed for a nap later in the morning, she states her back was in pain. Pain is rated a 7/10, constant and worse with movement, better with rest. She has not taken anything for relief. She denies any history of back pain. She states she likely hit her head, and denies any anticoagulants. She endorses left thumb pain. Denies any wrist pain. Denies any numbness or tingling. Endorses ecchymosis to the area, but no temperature changes. She is alert and oriented 3. - History of Current Complaint Chief Complaint: EDBackInjuryPain Stated Complaint: FALL Time Seen by Provider: 02/02/18 09:21 Hx Obtained From: Patient, Medical Records ?: No Mechanism of Injury: Fall Ambulatory at the Scene: Yes Loss of Consciousness: no loss of consciousness Force: Low Onset/Duration: Started Hours Ago Onset of Pain: Immediate Onset Severity: Mild Current Severity: Mild Pain Intensity: 9 Pain Scale Used: 0-10 Numeric Location: Head, Back Character: Dull Aggravating Factor(s): Movement Alleviating Factor(s): Immobilization Associated Signs & Symptoms: Negative: SOB, Chest Pain, Loss of Consciousness, Memory Loss, Numbness/Weakness, Significant Blood Loss - Additional Pertinent History Primary Care Physician: MOIRA - Allergy/Home Medications Allergies/Adverse Reactions: Allergies Allergy/AdvReac Type Severity Reaction Status Date / Time baclofen Allergy Shakes Verified 02/02/18 11:32 Penicillins Allergy Rash Verified 02/02/18 11:32 ropinirole Allergy Unknown Verified 02/02/18 11:32 Reaction Details wasp venom Allergy Difficulty Uncoded 02/02/18 11:32 Breathing/Wheezing narcotic pain meds AdvReac Intermediate Vomiting Uncoded 02/02/18 11:32 Home Medications: Home Medications Acetaminophen [Acetaminophen Extra Strength] 500 mg PO BID PRN 02/02/18 [ History Confirmed 02/02/18] Calcium Citrate 250 mg PO DAILY 02/02/18 [History Confirmed 02/02/18] Donepezil TAB* [Aricept 5 MG TAB*] 10 mg PO QAM 02/02/18 [History Confirmed ] EPINEPHrine [Epipen 2-Trace] 0.3 mg IM ONCE PRN 02/02/18 [History Confirmed ] Gabapentin CAP(*) [Neurontin 300 CAP(*)] 300 mg PO QAM 02/02/18 [History Confirmed 02/02/18] Gabapentin CAP(*) [Neurontin 300 CAP(*)] 900 mg PO BEDTIME 02/02/18 [History Confirmed 02/02/18] Levothyroxine TAB* [Synthroid TAB*] 100 mcg PO DAILY 02/02/18 [History Confirmed 02/02/18] Multivit-Min/Iron/Folic/Lutein [Centrum Silver Women Tablet] 1 tab PO DAILY [History Confirmed 02/02/18] Omeprazole CAP* [Prilosec CAP* 20 MG] 40 mg PO DAILY 02/02/18 [History Confirmed 02/02/18] Propranolol TAB* [Inderal TAB*] 10 mg PO TID 02/02/18 [History Confirmed ] Sertraline* [Zoloft*] 150 mg PO DAILY 02/02/18 [History Confirmed 02/02/18] Tamoxifen TAB* [Nolvadex*] 10 mg PO BID 02/02/18 [History Confirmed 02/02/18] PMH/Surg Hx/FS Hx/Imm Hx Previously Healthy: No - dementia Endocrine/Hematology History: Reports: Hx Thyroid Disease Denies: Hx Diabetes Cardiovascular History: Denies: Hx Hypertension, Hx Pacemaker/ICD Respiratory History: Reports: Other Respiratory Problems/Disorders - 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) Denies: Hx Asthma GI History: Reports: Hx Ulcer, Other GI Disorders - diarrhea History: Reports: Other Problems/Disorders - incontinance Denies: Hx Renal Disease Musculoskeletal History: Reports: Hx Arthritis, Hx Bursitis - in right hip - had a cortisone injection 3 years ago, Other Musculoskeletal History - lumbar stenosis, cervical stenosis Sensory History: Reports: Hx Contacts or Glasses - glasses Denies: Hx Hearing Aid Opthamlomology History: Reports: Hx Contacts or Glasses - glasses Neurological History: Reports: Hx Headaches, Hx Migraine, Hx Nerve Disease - tremors in legs and hands from back Comment Only: Other Neuro Impairments/Disorders - alzimers Psychiatric History: Reports: Hx Depression - ZOLOFT Denies: Hx Panic Disorder - Cancer History Cancer Type, Location and Year: BREAST Hx Chemotherapy: No Hx Radiation Therapy: No - Surgical History Surgery Procedure, Year, and Place: LT HIP ORIF WITH SCREW THEN SCREW REMOVAL - 2009;. 2009 right shoulder RTC REPAIR, right masectomy;. APPENDECTOMY AND RIGHT OVARY REMOVAL;. RECONSTRUCTION TO ABDOMEN AFTER APPENDECTOMY;. BILATERAL CATARACTS Hx Anesthesia Reactions: Yes - felt a little nausea after anesthesia - Immunization History Hx Pertussis Vaccination: No Immunizations Up to Date: Unable to Obtain/Confirm Infectious Disease History: No Infectious Disease History: Reports: Hx Shingles Denies: Traveled Outside the [place] in Last 30 Days - Family History Known Family History: Positive: Unknown, Other - Per EMR, patient denies relevant FHx - Social History Occupation: Unemployed Lives: At [facility] Alcohol Use: None Hx Substance Use: No Substance Use Type: Reports: None Hx Tobacco Use: Yes Smoking Status (MU): Former Smoker Review of Systems Constitutional: Negative Negative: Fever, Chills, Fatigue Negative: Epistaxis, Dental Pain Cardiovascular: Negative Respiratory: Negative Negative: Abdominal Pain, Vomiting, Diarrhea Genitourinary: Negative Positive: no symptoms reported, see HPI Positive: Arthralgia, Myalgia Positive: Other - abrasions Neurological: Negative All Other Systems Reviewed And Are Negative: Yes Physical Exam Triage Information Reviewed: Yes Vital Signs On Initial Exam: Initial Vitals Temp Pulse Resp BP Pulse Ox 98.0 F 62 16 159/93 96 02/02/18 09:26 02/02/18 09:26 02/02/18 09:26 02/02/18 09:26 02/02/18 09:26 Vital Signs Reviewed: Yes Appearance: Positive: Well-Appearing, Well-Nourished Skin: Positive: Warm, Skin Color Reflects Adequate Perfusion, Other - abrasions Head/Face: Positive: Normal Head/Face Inspection Eyes: Positive: EOMI, NENA Neck: Positive: Supple, Nontender Respiratory/Lung Sounds: Positive: Clear to Auscultation, Breath Sounds Present Cardiovascular: Positive: RRR Musculoskeletal: Positive: Pain @ - diffuse back pain - worse to the R side. Negative: Rebecca Sign Left, Rebecca Sign Right, Edema Left, Edema Right Neurological: Positive: Sensory/Motor Intact, Alert, Oriented to Person Place, Time Psychiatric: Positive: Normal, Affect/Mood Appropriate AVPU Assessment: Alert Diagnostics - Vital Signs Vital Signs Temp Pulse Resp BP Pulse Ox 02/02/18 09:26 98.0 F 62 16 159/93 96 - Laboratory Lab Statement: Any lab studies that have been ordered have been reviewed, and results considered in the medical decision making process. Adult Trauma Course/Dx - Course Course Of Treatment: during the course of treatment, obtained a CT scan of cervical, thoracic, lumbar spine assessing for any compression fractures or new pathologies as symptoms are worse to the R side. Chest x-ray obtained which shows no active acute cardiopulmonary disease. Left hand x-ray obtained which is negative for any findings. On physical exam, patient denied any hip pain with deep palpation to bilateral lateral hips. Denies any anterior hip or groin pain. Unable to assess gait as patient is wheelchair-bound. Able to logroll patient without pain. She continues to complain of pain to her right mid back and right rib area. Rib x-ray obtained which is negative. Tylenol with improvement of pain. She still rates her pain a 4/10. Upon discharge, RN stated the patient is now complaining of right buttocks pain. Again, provider assessed hip thoroughly and pain is directly located to the right gluteus without pain to deep palpation of the hip or during logrolling maneuvers. Because she did not complain of this pain on arrival, this pain is likely due to lying flat for 3+ hours while awaiting results. Daughter is at bedside and states will return for any worsening pain, however pain is likely due to lying in bed. I've discussed at length strict return precautions and patient is aware. Tramadol 50 mg 3 times daily as needed is given as prescription. She should follow up with her PCP. - Diagnoses Differential Diagnosis/HQI/PQRI: Positive: Contusion(s), Fracture Provider Diagnoses: Back pain, Fall Discharge - Sign-Out/Discharge Documenting (check all that apply): Discharge/Admit/Transfer - Discharge Plan Condition: Stable Disposition: HOME Prescriptions: traMADol TAB* [Ultram*] 50 mg PO Q8H PRN #12 tab MDD 3 PRN Reason: Pain Patient Education Materials: Fall Prevention for Older Adults (ED) Referrals: Digna Ac MD [Primary Care Provider] - Additional Instructions: Tramadol 3 times daily as needed for pain Tylenol 650 mg 3 times daily for pain Use both of these medications intermittently Heat packs to the area for comfort If he develop any worsening or changing symptoms, return to the ED Please follow-up with your PCP within 3 days - Billing Disposition and Condition Condition: STABLE Disposition: HOME
--- NOTE | 2018-02-02 12:10 | RAD ---
HISTORY: Fall, pain in left hand first digit COMPARISONS: None VIEWS: 4, Frontal, lateral, and oblique views of the left hand FINDINGS: BONE DENSITY: There is diffuse osteopenia. BONES: There is no displaced fracture. JOINTS: There is advanced osteoarthritis of the first CMC, MCP, and interphalangeal joints. There is moderate osteoporosis of the interphalangeal joints elsewhere. ALIGNMENT: There is no dislocation. SOFT TISSUES: Unremarkable. OTHER FINDINGS: None. IMPRESSION: 1. OSTEOPENIA. 2. OSTEOARTHRITIS. 3. NO ACUTE OSSEOUS INJURY. IF SYMPTOMS PERSIST, RECOMMEND REPEAT IMAGING
--- NOTE | 2018-02-02 12:10 | RAD ---
HISTORY: Fall, right posterior chest pain COMPARISONS: December 01, 2017 VIEWS: 1: frontal portable view of the chest at 10:57 AM FINDINGS: LINES AND TUBES: None. CARDIOMEDIASTINAL SILHOUETTE: The cardiomediastinal silhouette is normal for portable technique. PLEURA: The costophrenic angles are sharp. No pleural abnormalities are noted. LUNG PARENCHYMA: The lungs are clear. ABDOMEN: The upper abdomen is clear. There is no subphrenic gas. BONES AND SOFT TISSUES: There is postsurgical change to the right shoulder. Surgical clips are noted in the right axilla. IMPRESSION: NO ACTIVE CARDIOPULMONARY DISEASE.
--- NOTE | 2018-02-02 13:24 | RAD ---
HISTORY: Right rib pain COMPARISONS: None VIEWS: 4, Frontal view of the chest with frontal and oblique views of the right hemithorax. FINDINGS: There is diffuse osteopenia. There is a scoliotic curvature of the spine. Is multilevel anterolateral marginal osteophyte formation. Surgical clips are noted in the right axilla. There is no displaced rib fracture or pneumothorax. There are calcified mediastinal lymph nodes. IMPRESSION: NO DISPLACED RIB FRACTURE OR PNEUMOTHORAX.
[2018-02-02 14:19] VITALS: BP 127/66
== END 2018-02-02 14:20 | disposition home or self-care (01) ==
LOC: ED 09:13
DX: M54.9 Dorsalgia, unspecified (principal); F03.90 Unspecified dementia, unspecified severity, without behavioral disturbance, psychotic disturbance, mood disturbance, and anxiety; E07.9 Disorder of thyroid, unspecified; G43.909 Migraine, unspecified, not intractable, without status migrainosus; Z87.891 Personal history of nicotine dependence
CPT/HCPCS: 70450; 71045; 72125; 72128; 72131; 99282; A9270-GY

== ENCOUNTER 2018-09-25 21:39 | Emergency (ER) | payer MEDICARE, MEDICAID ==
[2018-09-25] MEDS ORDERED: NS 0.9% 1000 ML*IV.FLUID IV ONE (21:57)
[2018-09-25] MEDS ORDERED: Acetaminophen TAB* 325 MG PO ONE (21:57)
--- NOTE | 2018-09-25 21:58 | ED ---
Complex/Multi-Sys Presentation - HPI Summary HPI Summary: This pt is an 82 y/o female presenting [facility] from [facility] for generalized weakness and diarrhea since this morning. EMS reports per staff at [facility] pt has had decreased appetite and fever. Pt notes she feels "yucky. " When asked if pt has pain she notes she has back pain. Denies vomiting. ED nurse states pt has temporal temperature of 100.7F and is saturating at 88% on room air. PMHx includes breast CA s/p bilateral mastectomy. HPI IS LIMITED DUE TO LEVEL 5 CAVEAT - pt with dementia. - History Of Current Complaint Chief Complaint: EDFever Time Seen by Provider: 09/25/18 21:46 Hx Obtained From: Patient, EMS Hx From Patient Unobtainable Due To: Other - level 5 caveat - dementia Onset/Duration: Lasting Hours, Still Present Timing: Hours Severity Currently: Mild Location: Negative Aggravating Factor(s): nothing Alleviating Factor(s): nothing Associated Signs And Symptoms: Positive: Weakness - generalized, Diarrhea, Fever , Other - POS: back pain, decreased appetite. Negative: Vomiting - Allergies/Home Medications Allergies/Adverse Reactions: Allergies Allergy/AdvReac Type Severity Reaction Status Date / Time baclofen Allergy Shakes Verified 02/02/18 11:32 Penicillins Allergy Rash Verified 02/02/18 11:32 ropinirole Allergy Unknown Verified 02/02/18 11:32 Reaction Details wasp venom Allergy Difficulty Uncoded 02/02/18 11:32 Breathing/Wheezing narcotic pain meds AdvReac Intermediate Vomiting Uncoded 02/02/18 11:32 Home Medications: Home Medications Ondansetron TAB* [Zofran 4 MG Tab*] 4 mg PO Q6H PRN 09/25/18 [History Confirmed 09/25/18] PMH/Surg Hx/FS Hx/Imm Hx Endocrine/Hematology History: Reports: Hx Thyroid Disease Denies: Hx Diabetes Cardiovascular History: Denies: Hx Hypertension, Hx Pacemaker/ICD Respiratory History: Reports: Other Respiratory Problems/Disorders - 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) Denies: Hx Asthma GI History: Reports: Hx Ulcer, Other GI Disorders - diarrhea History: Reports: Other Problems/Disorders - incontinance Denies: Hx Renal Disease Musculoskeletal History: Reports: Hx Arthritis, Hx Bursitis - in right hip - had a cortisone injection 3 years ago, Other Musculoskeletal History - lumbar stenosis, cervical stenosis Sensory History: Reports: Hx Contacts or Glasses - glasses Denies: Hx Hearing Aid Opthamlomology History: Reports: Hx Contacts or Glasses - glasses Neurological History: Reports: Hx Headaches, Hx Migraine, Hx Nerve Disease - tremors in legs and hands from back Comment Only: Other Neuro Impairments/Disorders - alzimers Psychiatric History: Reports: Hx Depression - ZOLOFT Denies: Hx Panic Disorder - Cancer History Cancer Type, Location and Year: BREAST Hx Chemotherapy: No Hx Radiation Therapy: No - Surgical History Surgery Procedure, Year, and Place: LT HIP ORIF WITH SCREW THEN SCREW REMOVAL - 2009;. 2009 right shoulder RTC REPAIR, right masectomy;. APPENDECTOMY AND RIGHT OVARY REMOVAL;. RECONSTRUCTION TO ABDOMEN AFTER APPENDECTOMY;. BILATERAL CATARACTS Hx Anesthesia Reactions: Yes - felt a little nausea after anesthesia Infectious Disease History: Unable to Obtain/Confirm Infectious Disease History: Reports: Hx Shingles Denies: Traveled Outside the [place] in Last 30 Days - Family History Known Family History: Positive: Unknown - level 5 caveat - pt with dementia, Other - Per EMR, patient denies relevant FHx - Social History Alcohol Use: None Hx Substance Use: No Substance Use Type: Reports: None Hx Tobacco Use: Yes Smoking Status (MU): Former Smoker Review of Systems - ROS Summary Review of Systems Summary: HPI IS LIMITED DUE TO LEVEL 5 CAVEAT - pt with dementia. Constitutional: Other - POS: decreased appetite Positive: Fever Negative: Vomiting Musculoskeletal: Other - POS: back pain Positive: Weakness All Other Systems Reviewed And Are Negative: No Physical Exam - Summary Physical Exam Summary: VITAL SIGNS: Reviewed. GENERAL: Patient is a well-developed and nourished female who is lying comfortable in the stretcher. Patient is not in any acute respiratory distress. HEAD AND FACE: No signs of trauma. No ecchymosis, hematomas or skull depressions. No sinus tenderness. EYES: PERRLA, EOMI x 2, No injected conjunctiva, no nystagmus. EARS: Hearing grossly intact. Ear canals and tympanic membranes are within normal limits. MOUTH: Oropharynx within normal limits. NECK: Supple, trachea is midline, no adenopathy, no JVD, no carotid bruit, no c- spine tenderness, neck with full ROM. CHEST: Symmetric, no tenderness at palpation. Bilateral mastectomy. LUNGS: Clear to auscultation bilaterally. No wheezing or crackles. CVS: Regular rate and rhythm, S1 and S2 present, no murmurs or gallops appreciated. ABDOMEN: Soft, non-tender. Abdomen is distended. No rebound no guarding, and no masses palpated. Hypoactive bowel sounds. EXTREMITIES: FROM in all major joints, no edema, no cyanosis or clubbing. NEURO: Alert and oriented x 1, only to her name. No acute neurological deficits. Speech is normal and follows commands. SKIN: Dry and warm Triage Information Reviewed: Yes Vital Signs On Initial Exam: Initial Vitals Temp Pulse Resp BP Pulse Ox 100.7 F 94 16 124/79 88 09/25/18 21:46 09/25/18 21:46 09/25/18 21:46 09/25/18 21:46 09/25/18 21:46 Vital Signs Reviewed: Yes Completion Of Physical Exam Limited Due To: Level 5 - pt with dementia Diagnostics - Vital Signs Vital Signs Temp Pulse Resp BP Pulse Ox 09/25/18 21:46 100.7 F 94 16 124/79 88 - Laboratory Result Diagrams: 09/25/18 22:14 09/25/18 22:14 Lab Statement: Any lab studies that have been ordered have been reviewed, and results considered in the medical decision making process. - Radiology Chest XR Radiology Interpretation Completed By: ED Physician Summary of Radiographic Findings: No acute process. Pending official radiology report. - CT Abdomen/Pelvis CT CT Interpretation Completed By: Radiologist Summary of CT Findings: IMPRESSION: No acute findings. Dr. Friedman has reviewed this report. - EKG 22:12 Cardiac Rate: NL - at 88 bpm EKG Rhythm: Sinus Rhythm Summary of EKG Findings: Normal axis. Normal interval. No ischemic changes Re-Evaluation - Re-Evaluation First Eval Re-Evaluation Time: 02:19 Comment: Pt is refusing admission. Complex Multi-Symp Course/Dx Assessment/Plan: Pt is an 82 y/o female who presents to the ED via EMS from [facility] for generalized weakness and diarrhea since this morning. EMS reports per staff at [facility] pt has had decreased appetite and fever. Blood work and UA were obtained. Influenza A and B are both negative. Abdomen/ pelvis CT shows no acute findings. Sepsis protocol initiated. In the ED course the pt was given Flagyl, Levaquin, Tylenol. I discussed the case with Dr. Sullivan, hospitalist, who accepted the pt for admission. Pt refuses admission to the hospital. She will be [facility] back to [facility] with prescription for Levaquin. Pt was instructed to return to the ED for any new or worsening symptoms. - Diagnoses Provider Diagnoses: UTI (urinary tract infection) - Physician Notifications Discussed Care Of Patient With: Monty Sullivan - hospitalist Time Discussed With Above Provider: 01:42 Instructed by Provider To: Admit As Inpatient Discharge - Sign-Out/Discharge Documenting (check all that apply): Patient Departure - Discharge home - Discharge Plan Condition: Stable Disposition: HOME Prescriptions: Levofloxacin TAB* [Levaquin TAB*] 500 mg PO DAILY #7 tab Patient Education Materials: Urinary Tract Infection in Women (ED) Referrals: Digna Ac MD [Primary Care Provider] - Additional Instructions: Please follow up with your primary care provider in 1-2 days. RETURN TO EMERGENCY DEPARTMENT FOR ANY NEW OR WORSENING SYMPTOMS. - Attestation Statements Document Initiated by Scribe: Yes Documenting Scribe: Rekha Vo Provider For Whom Scribe is Documenting (Include Credential): Cindy Friedman MD Scribe Attestation: Rekha Mckinney, scribed for Cindy Friedman MD on 09/26/18 at 0225. Status of Scribe Document: Ready
[2018-09-25] MEDS ORDERED: metroNIDAZOLE TAB* 250 MG PO ONE (22:01)
[2018-09-25] MEDS ORDERED: Levofloxacin 500 MG IVPREMIX(* 500 MG/100 ML BAG IVPB ONE (22:01)
[2018-09-25 22:35] LABS: ABS Basophils 0 10^3/ul (0-0.2); ABS Eosinophils 0 10^3/ul (0-0.6); ABS Lymphocytes 0.5 10^3/ul (1.0-4.8); ABS Monocytes 0.3 10^3/ul (0-0.8); ABS Neutrophils 5.3 10^3/ul (1.5-7.7); ABS Nucleated RBC 0 10^3/ul; Eosinophil % 0.4 %; Hematocrit 31 % (35-47); Hemoglobin 10.2 g/dl (12.0-16.0); Lymphocyte % 8.6 %; Mean Corpuscular HGB Conc 33 g/dl (31-36); Mean Corpuscular Hemoglobin 29 pg (27-31); Mean Corpuscular Volume 87 fL (80-97); Mean Platelet Volume 7.8 fL (7.4-10.4); Nucleated Red Blood Cells % 0.1; Platelet Count 140 10^3/ul (150-450); Red Blood Count 3.56 10^6/ul (4.00-5.40); Red Cell Distribution Width 17 % (10.5-15); White Blood Count 6.2 10^3/ul (3.5-10.8)
[2018-09-25 22:43] LABS: Activated Partial Thrombo Time 29.1 seconds (26.0-36.3); INR 0.94 (0.77-1.02)
[2018-09-25 22:51] LABS: Albumin 3.6 g/dL (3.2-5.2); Albumin/Globulin Ratio 1.1 (1-3); BUN/Creatinine Ratio 12.6 (8-20); C Reactive Protein 14.28 mg/L (<8.01); Calcium 9.3 mg/dL (8.6-10.3); EGFR Non-African American 40.2 (>60); Globulin 3.2 g/dL (2-4); Potassium 4.6 mmol/L (3.5-5.0); Total Bilirubin 0.4 mg/dL (0.2-1.0); Total Protein 6.8 g/dL (6.4-8.9)
[2018-09-25] MEDS ORDERED: Iodixanol* (CONTRAST) 320 MG/ML 100 ML SDV IV ONE (23:21)
[2018-09-26 01:19] LABS: Urine Appearance Clear; Urine Bacteria 1+ (Absent); Urine Bilirubin Negative (Negative); Urine Blood Negative (Negative); Urine Color Yellow; Urine Glucose Negative (Negative); Urine Ketones Negative (Negative); Urine Nitrite Positive (Negative); Urine Protein Negative (Negative); Urine Red Blood Cell Trace(0-2/hpf) (Absent); Urine Specific Gravity 1.033 (1.010-1.030); Urine Urobilinogen Negative (Negative); Urine White Blood Cell 2+(11-20/hpf) (Absent)
[2018-09-26 02:43] VITALS: BP 109/59
== END 2018-09-26 02:42 | disposition home or self-care (01) ==
LOC: ED 21:39
DX: N39.0 Urinary tract infection, site not specified (principal); R19.7 Diarrhea, unspecified; R53.1 Weakness; F32.9 Major depressive disorder, single episode, unspecified; Z88.5 Allergy status to narcotic agent; Z88.0 Allergy status to penicillin; Z88.8 Allergy status to other drugs, medicaments and biological substances; Z91.030 Bee allergy status; Z87.891 Personal history of nicotine dependence
CPT/HCPCS: 36415; 71045; 74177; 80053; 81003; 81015; 83605; 84484; 85025; 85610; 85730; 86140; 87040; 87077; 87086; 87186; 93005; 96365; 99284; A9270-GY; J1956; Q9967

== ENCOUNTER 2019-11-01 16:37 | Emergency (ER) | payer MEDICARE, MEDICAID ==
[2019-11-01] MEDS ORDERED: NS 0.9% 500 ML* 500 ML IV ONE (17:12)
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
[2019-11-01 17:48] LABS: ABS Eosinophils 0.1 10^3/ul (0-0.6); ABS Lymphocytes 1.3 10^3/ul (1.0-4.8); ABS Monocytes 0.3 10^3/ul (0-0.8); ABS Neutrophils 4.3 10^3/ul (1.5-7.7); Eosinophil % 0.9 %; Hematocrit 37 % (35-47); Hemoglobin 12.5 g/dL (12.0-16.0); Mean Corpuscular HGB Conc 34 g/dL (31-36); Mean Corpuscular Hemoglobin 30 pg (27-31); Mean Corpuscular Volume 90 fL (80-97); Mean Platelet Volume 8.2 fL (7.4-10.4); Platelet Count 142 10^3/uL (150-450); Red Cell Distribution Width 14 % (10-15); White Blood Count 6.1 10^3/uL (3.5-10.8)
[2019-11-01 18:07] LABS: Albumin 4.5 g/dL (3.2-5.2); Calcium 9.8 mg/dL (8.6-10.3); Magnesium 2.3 mg/dL (1.9-2.7); Potassium 4.2 mmol/L (3.5-5.0); Total Bilirubin 0.4 mg/dL (0.2-1.0)
[2019-11-01 18:13] LABS: Albumin/Globulin Ratio 1.7 (1-3); BUN/Creatinine Ratio 15.3 (8-20); EGFR African American 52.7 (>60); EGFR Non-African American 43.5 (>60); Globulin 2.7 g/dL (2-4); Total Protein 7.2 g/dL (6.4-8.9)
[2019-11-01 18:19] LABS: Urine Appearance Clear; Urine Bilirubin Negative (Negative); Urine Blood Negative (Negative); Urine Color Yellow; Urine Glucose Negative (Negative); Urine Ketones Negative (Negative); Urine Nitrite Negative (Negative); Urine Protein Negative (Negative); Urine Specific Gravity 1.017 (1.010-1.030); Urine Urobilinogen Negative (Negative)
[2019-11-01 18:47] VITALS: BP 168/65
== END 2019-11-01 18:47 | disposition home or self-care (01) ==
LOC: ED 16:37
DX: S00.83XA Contusion of other part of head, initial encounter (principal); M50.31 Other cervical disc degeneration, high cervical region; W19.XXXA Unspecified fall, initial encounter; Y92.129 Unspecified place in nursing home as the place of occurrence of the external cause; F03.90 Unspecified dementia, unspecified severity, without behavioral disturbance, psychotic disturbance, mood disturbance, and anxiety; I35.0 Nonrheumatic aortic (valve) stenosis; E07.9 Disorder of thyroid, unspecified; F32.9 Major depressive disorder, single episode, unspecified; Z85.3 Personal history of malignant neoplasm of breast; Z90.89 Acquired absence of other organs; Z90.13 Acquired absence of bilateral breasts and nipples; Z87.891 Personal history of nicotine dependence; Z79.899 Other long term (current) drug therapy; Z88.5 Allergy status to narcotic agent; Z88.0 Allergy status to penicillin; Z88.8 Allergy status to other drugs, medicaments and biological substances
CPT/HCPCS: 36415; 70450; 71046; 72125; 80053; 81003; 83690; 83735; 85025; 96360; 99283